=== PATIENT | female | born 1985 | race Caucasian/White ===

== ENCOUNTER → 2017-09-23 | Outpatient (CLI) | payer BC ==
[~2017-09-23] VITALS: Ht 154.9 cm; Wt 63.2 kg
[~2017-09-23] MED LIST: MOTRIN 600600 MG/TAB PO; PERCOCET 325 MG1 TA2 PO; PRENATAL1 TA1 PO
[2017-09-23 17:30] VITALS: BP 104/64; PULSE 55; TEMP 97.7
[2017-09-23 18:02] VITALS: BP 104/64; PULSE 55; TEMP 97.7
== END ==
LOC: LDR → EDSTATUS 09:12 → LDRO 16:48 → LDR 11-24 09:15 → EDSTATUS 11-24 14:26
DX: O46.93 Antepartum hemorrhage, unspecified, third trimester (principal); Z3A.30 30 weeks gestation of pregnancy; N96 Recurrent pregnancy loss

== ENCOUNTER 2017-11-24 07:02 | Inpatient (IN) | payer BC ==
[2017-11-24] VITALS (38 sets, daily range): BP systolic 85–117; BP diastolic 50–72; PULSE 57–99; TEMP 97.5–98.4
[~2017-11-24] VITALS: Ht 154.9 cm; Wt 63.2 kg
[2017-11-24 07:43] LABS: BASO % 0.3 % (0.0-2.0); EOS % 0.3 % (0-4.0); GRAN # 5.5 (1.4-6.5); GRAN % 72.6 % (42.2-75.2); HEMATOCRIT 34.8 % (37.0-47.0); HEMOGLOBIN 12.2 g/dl (12.5-16.0); LYMPH # 1.4 (1.2-3.4); LYMPH % 18.2 % (20.0-51.0); MEAN CELL VOLUME 92 fl (80.0-100.0); MEAN CORPUSCULAR HEMOGLOBIN 32 pg (27.0-31.0); MEAN CORPUSCULAR HGB CONC 35 g/dl (33.0-37.0); MEAN PLATELET VOLUME 9.3 fl (7.4-10.4); MONO # 0.6 (0.1-0.6); MONO % 8.2 % (1.7-9.3); PLATELET COUNT 186 K/mm3 (130-400); RED BLOOD COUNT 3.77 M/mm3 (4.10-5.30); REDCELL DISTRIBUTION WIDTH-CV 12.4 % (11.5-14.5)
[2017-11-25 03:30] VITALS: BP 83/58; PULSE 69; TEMP 97.7
[2017-11-25 07:45] VITALS: BP 105/69; PULSE 75; TEMP 97.5
[2017-11-25] MEDS ORDERED: PERCOCET 325 MG1 TA2 PO (09:53)
[2017-11-25] MEDS ORDERED: MOTRIN 600600 MG/TAB PO (09:53)
[2017-11-25 12:30] VITALS: BP 101/56; PULSE 69; TEMP 97.5
== END 2017-11-25 17:00 | disposition home or self-care (01) | DRG 775 ==
LOC: LDR 07:02 → OB 17:00
PROVIDERS: Obstetrics & Gynecology
PROC: 10E0XZZ Delivery of Products of Conception, External Approach (ICD-10-PCS; principal; 2017-11-24)
PROC: 3E033VJ Introduction of Other Hormone into Peripheral Vein, Percutaneous Approach (ICD-10-PCS; 2017-11-24)
DX: O69.81X0 Labor and delivery complicated by cord around neck, without compression, not applicable or unspecified (principal); Z3A.39 39 weeks gestation of pregnancy; Z37.0 Single live birth
CPT/HCPCS: J2400; J2590; J7120

== ENCOUNTER 2020-07-10 11:37 | Inpatient (IN) | payer BC ==
[2020-07-10] VITALS (30 sets, daily range): BP systolic 91–132; BP diastolic 52–82; PULSE 45–88; TEMP 98–98.4
[~2020-07-10] VITALS: Ht 154.9 cm; Wt 68.2 kg
--- NOTE | 2020-07-10 13:28 | NUR ---
[id number] 39.3 Week patient ambulatory to LR3 for scheuduled induction of labor. Reports feeling baby move well and occasional contractions but nothing consistent. Denies LOF or VB. Assisted into gown and onto EFM. Assessment complete. IV to left forearm, blood collected and sent to lab. LR infusing per MD order, see EMAR. Consents reviewed and signed. SVE /-3, IVANNA. Pitocin started per MD order and protocol at 1405, see EMAR. Update on plan of care and safety.
--- NOTE | 2020-07-10 15:00 | NUR ---
1500-Dr. Li on unit. In to see patient on Roles behalf. Patient agrees to have AROM. 1504-AROM by Dr. Li. 3-/-2, Clear fluid noted. Macy care provided. Updated on plan of care.
[2020-07-10 15:16] LABS: BASO % 0.4 % (0.0-2.0); EOS % 0.3 % (0-4.0); GRAN # 5.5 (1.4-6.5); GRAN % 69.4 % (42.2-75.2); HEMOGLOBIN 12.7 g/dl (12.5-16.0); LYMPH # 1.9 (1.2-3.4); LYMPH % 23.4 % (20.0-51.0); MEAN CELL VOLUME 94 fl (80.0-100.0); MEAN CORPUSCULAR HEMOGLOBIN 33 pg (27.0-31.0); MEAN CORPUSCULAR HGB CONC 35 g/dl (33.0-37.0); MEAN PLATELET VOLUME 10.6 fl (7.4-10.4); MONO # 0.5 (0.1-0.6); MONO % 6.2 % (1.7-9.3); PLATELET COUNT 161 K/mm3 (130-400); RED BLOOD COUNT 3.85 M/mm3 (4.10-5.30); REDCELL DISTRIBUTION WIDTH-CV 12.7 % (11.5-14.5)
[2020-07-10 15:17] LABS: HEMATOCRIT 36.3 % (37.0-47.0)
--- NOTE | 2020-07-10 18:15 | NUR ---
Report received from CHON Jain. Contractions every 1.5-2 minutes. Recurrent subtle late/early decelerations. Pitocin off at this time.
--- NOTE | 2020-07-10 18:55 | NUR ---
BAL 0, practice push moves baby well. Dr. Barajas notified. 1904 - Brewer catheter removed. 250 clear yellow urine out.
--- NOTE | 2020-07-10 19:19 | NUR ---
1906 - Dr. Barajas at bedside. Nursery nurse Allen at bedside. Pt educated on pushing techniques. Positioned into footplates. 1909 - Dr. Barajas gowned and gloved at perineum. Initial push at this time. Pt pushing well. 1914 - Late deceleration down to 80 bpm after contraction. Scalp stimulation by Dr. Barajas with little improved in FHR. Pt pushes well with contractions, delivery imminent. 1917 - Pt pushing well with contraction. FHR remains in 80s. 1918 - Spontaneous vaginal delivery of viable boy. Nuchal cord x 1 delivered through. Infant placed on mothers abdomen. Care of infant assumed to CHON Villa. Cord clamped x 2 and cut by FOB. Cord blood obtained. 1921 - Spontaneous delivery of intact placenta by Dr. Barajas. Pitocin restarted at 333 mL/hr per protocol. Fundus firm and down 2 from umbilicus. Intact perineum per Dr. Barajas. Pericare provided. Ice pack to perineum. Pt repositioned in bed for comfort. recovery started. See physician delivery note.
--- NOTE | 2020-07-10 22:15 | NUR ---
pt able to lift and hold each leg off of bed for 5 seconds. Pt repositioned to sitting on edge of bed. Epidural catheter removed. Tip smooth, blue, and intact. Pt tolerated well. Pt attempted to stand independtly and was wobbly and right leg weak. pt back to sitting. Wheelchair brought to bedside, pt able to pivot to wheelchair. Pt able to pivot on to toilet. Able to void 700 mL bloody urine. Pericare explained and applied. Clean gown on. Mesh panties and peripad on. Pt transferred to room 207 with belongings and infant. Safety precautions reviewed. Call light within reach.
[2020-07-11 04:00] VITALS: BP 97/52; PULSE 57; TEMP 98
[2020-07-11 07:30] VITALS: BP 108/65; PULSE 48; TEMP 98
[2020-07-11] MEDS ORDERED: IBU600 MG PO (08:31)
--- NOTE | 2020-07-11 08:58 | NUR ---
Initial visit; Pattient thanked for offering congratulations and God's blessings to her family for the of their new son and brother. Metrology Specialist thanked family for choosing [facility].
[2020-07-11 12:00] VITALS: BP 110/65; PULSE 50; TEMP 98.1
[2020-07-11 16:34] VITALS: BP 112/80; PULSE 67; TEMP 98
== END 2020-07-11 20:50 | disposition home or self-care (01) | DRG 807 ==
LOC: OB 11:37 → LDR 13:14 → OB 22:36
PROVIDERS: ADMIT Obstetrics & Gynecology
PROC: 10E0XZZ Delivery of Products of Conception, External Approach (ICD-10-PCS; principal; 2020-07-10)
PROC: 3E033VJ Introduction of Other Hormone into Peripheral Vein, Percutaneous Approach (ICD-10-PCS; 2020-07-10)
PROC: 10907ZC Drainage of Amniotic Fluid, Therapeutic from Products of Conception, Via Natural or Artificial Opening (ICD-10-PCS; 2020-07-10)
DX: O76 Abnormality in fetal heart rate and rhythm complicating labor and delivery (principal); Z37.0 Single live birth; O99.02 Anemia complicating childbirth; Z3A.39 39 weeks gestation of pregnancy
CPT/HCPCS: J2590; J7120

== ENCOUNTER → 2023-12-02 | Outpatient (CLI) | payer BC ==
[~2023-12-02] MED LIST changes: +IBU600 MG PO
== END ==
LOC: MC.RAD 06:55
DX: Z12.31 Encounter for screening mammogram for malignant neoplasm of breast (principal); N64.89 Other specified disorders of breast

== ENCOUNTER → 2023-12-14 | Outpatient (CLI) | payer BC | LOC: MC.RAD 12:58 | DX: R92.8 Other abnormal and inconclusive findings on diagnostic imaging of breast (principal) ==